=== PATIENT | male | born 1990 | race African-American/Black ===

== ENCOUNTER 2021-09-09 11:49 | Emergency (ER) | payer OTHER ==
[~2021-09-09] VITALS: Ht 175.3 cm; Wt 96.0 kg
[2021-09-09] MEDS ORDERED: LIDOCAINE 1% Multi-Dose 20 ML VIAL. IJ ONE (12:15)
--- NOTE | 2021-09-09 13:07 | RAD ---
AP view of the left hand with lateral and oblique views of the left third digit. INDICATION: Laceration. FINDINGS: No fracture subluxation or dislocation. No radiopaque retained foreign body. There is soft tissue swe lling over the distal tuft of the distal third phalanx. Electronically signed by: Jareth Hazel MD (09/09/2021 1:04 PM) [id number]
[2021-09-09] MEDS ORDERED: DIPHTH,PERTUSS(ACELL),TET TOX 0.5 ML DISP.SYRIN. VAX IM ONE ×2 (14:45→14:47)
[2021-09-09] MEDS ORDERED: TRANEXAMIC ACID 1,000 MG/10 ML VIAL. TOP ONE (14:45)
--- NOTE | 2021-09-09 14:45 | PHYS DOC ---
Past History Past Surgical History: Other Additional Past Surgical Histo: abd hernia (JEWEL FAM APRN) Alcohol Use: None (JEWEL FAM APRN) General Adult EDM: Chief Complaint: LACERATION/AVULSION HPI: HPI: Patient is a 31-year-old male who presents the emergency department for a laceration to the tip of his left third finger that occurred while at work when a plastic cutting machine to move his finger. Laceration does involve nailbed. He denies any decreased range of motion or decreased sensation in his finger. Unknown last tetanus. (JEWEL FAM APRN) Review of Systems: Review of Systems: Musculoskeletal: See HPI Integument: See HPI Neurologic: See HPI (JEWEL FAM APRN) Current Medications: Current Meds: Current Medications Medications (Trade) Dose Ordered Sig/Ping Start Time Stop Time Status Last Admin Dose Admin Lidocaine HCl 20 ml 1X ONCE 09/09/21 12:15 09/09/21 12:16 DC 09/09/21 12:15 20 ML Tranexamic Acid (Cyklokapron) 1,000 mg 1X ONCE 09/09/21 14:45 09/09/21 14:46 (JEWEL FAM APRN) Allergies: Allergies: Allergies Coded Allergies Type Severity Reaction Last Updated Verified No Known Drug Allergies 09/09/21 No (JEWEL FAM APRN) Physical Exam: PE: Constitutional: Well developed, well nourished, no acute distress, non-toxic appearance. [] HENT: Normocephalic, atraumatic, bilateral external ears normal, oropharynx moist, no oral exudates, nose normal. [] Eyes: PERRL, EOMI, conjunctiva normal, no discharge. [] Neck: Normal range of motion, no stridor Cardiovascular: Normal peripheral perfusion Lungs & Thorax: Normal work of breathing, no tachypnea Abdomen: Soft and flat Skin: Warm, dry, no erythema, no rash. [] Back: No tenderness, normal range of motion Extremities: No tenderness, no cyanosis, no clubbing, ROM intact, no edema. [] Left third finger: Laceration noted to the side of patient's left finger approximately 2 cm long which involves nailbed, there is a nail laceration, range of motion intact, neuro intact Neurologic: Alert and oriented X 3, normal motor function, normal sensory function, no focal deficits noted. [] Psychologic: Affect normal, judgement normal, mood normal. [] (JEWEL FAM APRN) Current Patient Data: Vital Signs: Vital Signs Date Time Temp Pulse Resp B/P (MAP) Pulse Ox O2 Delivery O2 Flow Rate FiO2 09/09/21 11:50 98.4 100 18 164/117 (133) 100 Room Air (JEWEL FAM APRN) EKG: EKG: [] (JEWEL FAM APRN) Radiology/Procedures: Radiology/Procedures: []REASON: laceration, cut lt third digit PROCEDURE: FINGER(S) LEFT AP view of the left hand with lateral and oblique views of the left third digit. INDICATION: Laceration. FINDINGS: No fracture subluxation or dislocation. No radiopaque retained foreign body. There is soft tissue swelling over the distal tuft of the distal third phalanx. Electronically signed by: Jareth Augustin MD (09/09/2021 1:04 PM) [id number] DICTATED AND SIGNED BY: JARETH AUGUSTIN MD DATE: 09/09/21 1304 CC: JEWEL FAM APRN; PCP,NO ~ (JEWEL FAM APRN) Heart Score: C/O Chest Pain: N/A Risk Factors: Risk Factors: DM, Current or recent (<one month) smoker, HTN, HLP, family history of CAD, obesity. Risk Scores: Score 0 - 3: 2.5% MACE over next 6 weeks - Discharge Home Score 4 - 6: 20.3% MACE over next 6 weeks - Admit for Clinical Observation Score 7 - 10: 72.7% MACE over next 6 weeks - Early Invasive Strategies (JEWEL FAM APRN) Course & Med Decision Making: Course & Med Decision Making Pertinent Labs and Imaging studies reviewed. (See chart for details) [] Presents to the emergency department for a laceration to his left third finger after cutting it on a machine at work. Laceration was cleansed in the emergency department. An x-ray was performed which was negative for fracture or visible foreign bodies. Patient is neurovascularly intact. Wound was cleansed in the emergency department with saline wound wash and Betadine. Nail bed laceration involved, nail was removed laceration and nailbed were repaired with sutures.Physician assisted. Patient tolerated procedure. Stent was placed and bleeding is controlled. Patient's tetanus was updated today. Patient educated on laceration care and suture removal. I discussed with patient all findings and diagnostic testing as well as the need to follow-up with PCP for further evaluation and treatment or return to the ER if any new or worsening symptoms. Strict return precautions were also discussed at length. Patient voiced understanding and agreement with the plan. Patient is hemodynamically stable at the time of disposition. (JEWEL FAM APRN) Dragon Disclaimer: Dragon Disclaimer: This electronic medical record was generated, in whole or in part, using a voice recognition dictation system. (JEWEL FAM APRN) Laceration Repair Lac Repair Time:1400 Confirmed: Patient, procedure, site, and site correct Consent: Patient has given verbal consent Laceration location: Left third finger Shape: Curved Depth: With subcutaneous involvement Details: Clean with no foreign material Neurovascular, tendon exam: Intact Anesthesia: 1% lidocaine Preparation: Sterile field established Irrigation: Wound irrigated with saline wound wash with Betadine Skin closure: Simple interrupted sutures placed Size of suture: 6-0 Ethilon Number of sutures: 9 Complexity: Single layer Post procedure exam: Circulation, motor, sensory exam intact, bleeding controlled. Complications: None Patient tolerated: Well Performed by: self Total time: 45 min (JEWEL FAM APRN) Attending Co-Sign The patient was seen and interviewed as well as examined at the bedside. The chart was reviewed. The case was discussed. Agree with the plan of care. (KEKE RODRIGUEZ DO) Departure Departure: Impression: Primary Impression: Laceration Disposition: 01 HOME / SELF CARE / HOMELESS Condition: GOOD Referrals: PCP,NO (PCP) Patient Instructions: Laceration Care, Adult Additional Instructions: You are seen in the emergency department today for a laceration which was repaired. Please keep this area clean and dry. Apply Polysporin or bacitracin ointment and keep a dressing in place. Change it twice a day and when soiled. You can wash your wound with warm water and mild soap. You will need to return to your primary care provider or return to the emergency department in 7 to 10 days to have your sutures removed. You are being discharged home with an antibiotic. Please start and finish completely. You can take Tylenol or ibuprofen at home for your pain. Follow-up with your primary care provider in 2 days for wound recheck. Return to the emergency department if you develop worsening of your pain, any signs of infection as evidenced by redness, warmth, swelling or drainage, high fevers refractory to treatment, decreased range of motion, decreased sensation in your extremity, intractable nausea or vomiting. Scripts Cephalexin (KEFLEX) 500 Mg Capsule 1 CAP PO QID for infection for 7 Days, #28 CAP 0 Refills Prov: JEWEL FAM APRN 09/09/21 JEWEL FAM APRN September 09, 2021 14:45 KEKE RODRIGUEZ DO September 10, 2021 11:26
[2021-09-09] MEDS ORDERED: NEOMY/BACITR/POLYMYXIN OINT PACKET. TP ONE ×2 (15:02→15:15)
[2021-09-09] MEDS ORDERED: CEPH500C PO (15:10)
[2021-09-09] MEDS ORDERED: cefTRIAXone IM 500 MG VIAL. IM ONE (15:30)
[2021-09-09 16:05] VITALS: BP 136/75
== END 2021-09-09 16:00 | disposition home or self-care (01) ==
LOC: EEVIPCON 11:49 → ER 11:49
DX: S61.313A Laceration without foreign body of left middle finger with damage to nail, initial encounter (principal); W31.89XA Contact with other specified machinery, initial encounter; Y93.89 Activity, other specified; Y92.89 Other specified places as the place of occurrence of the external cause; Y99.0 Civilian activity done for income or pay
CPT/HCPCS: 11760; 73140; 90471; 90715; 96372; 99285; J0696